=== PATIENT | female | born 1950 | race Caucasian/White ===

== ENCOUNTER 2022-08-13 18:11 | Observation (INO) | payer OTHER, SELFPAY ==
--- NOTE | 2022-08-13 18:12 | XRR_ITS ---
PROCEDURE INFORMATION: Exam: XR Chest Exam date and time: 08/13/2022 8:36 PM Age: 71 years old Clinical indication: Pain; Chest pressure; Additional info: Cp TECHNIQUE: Imaging protocol: Radiologic exam of the chest. Views: 1 view. COMPARISON: No relevant prior studies available. FINDINGS: Lungs: Unremarkable. No consolidation. Pleural spaces: Unremarkable. No pleural effusion. No pneumothorax. Heart/Mediastinum: Unremarkable. No cardiomegaly. Bones/joints: Unremarkable. XR/XR chest 1V portable [id number] IMPRESSION: No acute findings.
[2022-08-13 18:13] VITALS: BP 153/90; PULSE 93; RESP 16; TEMP 36.8; O2SAT 96; BMI 33.8
--- NOTE | 2022-08-13 18:29 | ECG_ITS ---
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 Measurements Intervals [place] Rate: 89 P: 54 FL: 158 QRS: -8 QRSD: 95 T: 36 QT: 344 QTc: 420 Interpretive Statements SINUS RHYTHM WITH OCCASIONAL ECTOPIC PREMATURE COMPLEXES POSSIBLE ANTERIOR MYOCARDIAL INFARCTION , PROBABLY OLD [30 ms Q WAVE IN V3/V4, OR R < 0.2 mV IN V4] No previous ECG available for comparison Electronically Signed On 08-13-2022 21:54:36 CDT by Gus Silva M.D. [id number]
[2022-08-13 19:16] LABS: Basophils % 0.4 %; Eosinophils # 0.1 10^3/uL (0.0-0.8); Eosinophils % 1.6 %; Hematocrit 38.9 % (37.0-47.0); Hemoglobin 12.4 g/dL (11.5-15.3); Lymphocytes # 1.9 10^3/uL (0.8-4.8); Lymphocytes % 23.9 %; Mean Corpuscular HGB Conc 31.9 g/dL (30.0-36.0); Mean Corpuscular Hemoglobin 29.7 pg (28.0-34.0); Mean Corpuscular Volume 93.1 fl (81-99); Mean Platelet Volume 10.5 fL (7.4-10.4); Monocytes # 0.5 10^3/uL (0.2-0.9); Monocytes % 6.7 %; Neutrophils # 5.29 10^3/uL (1.8-7.7); Neutrophils % 66.6 %; Nucleated Red Blood Cells % 0 %; Platelet Count 212 10^3/cmm (130-400); Red Blood Count 4.18 10^6/uL (4.1-5.3); Red Cell Distribution Width 12.7 % (12.1-15.1); White Blood Count 7.9 10^3/uL (4.0-10.0)
--- NOTE | 2022-08-13 19:54 | ED_ITS ---
HPI - Chest Pain General: Chief Complaint: Chest Pain Stated Complaint: back pain, cp Time Seen by Provider: 08/13/22 19:54 History of Present Illness: Ms. Davidson is a 71-year-old lady presenting to the emergency department due to generalized illness. She reports onset of symptoms this morning with dizzy and unsteady feeling with difficulty walking. She subsequently took Dramamine which improved this. She also has developed pain between her shoulder blades and midsternal chest pain that is worse with movement and palpation as well as deep inspiration. Mild associated nausea. Intensity symptoms is moderate. Course has persisted intermittently. No other specific changes in health, exacerbating, or alleviating factors identified. Onset (ago): hour(s) Timing of current episode: constant Prior episodes: No Onset: during exertion Pain location: substernal Severity: moderate Quality: aching Exacerbating factors: inspiration and palpation Associated symptoms: Reports nausea and other Review of Systems General: Reports: 10 or more systems reviewed and unremarkable except in HPI and below GI: Reports: nausea PFSH ED PFSH: Medical History Chest pain Diabetes Family history of gout GERD (gastroesophageal reflux disease) Hypertension Surgical History History of knee surgery Family History Grandmother CAD (coronary artery disease) Diabetes Hypertension Stroke Grandfather CAD (coronary artery disease) Diabetes Hypertension Stroke Father CAD (coronary artery disease) Chronic kidney disease (CKD) Diabetes Hypertension Sister Hyperlipidemia Hypertension Mother Lung disease COPD Denies family history of Clotting disorder Dementia Psychiatric illness Anesthesia complication Bleeding disorder Cancer Social History Smoking and tobacco status: never smoked Smoking risk assessment/counseling performed?: No Alcohol intake: never Desire information about alcohol rehabilitation?: No Counseling given: No Desire information about substance/drug rehabilitation?: No Counseling given: No Adopted: No Caregiver/support person: No Lives independently: Yes Household members: family Marital status: Legally Number of children: 2 service: No Current occupational status: employed 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 History of recent travel: Yes Current gender identity: Female Serenity/Pentecostalism: Faith Special serenity needs: No Agree to transfusion: Yes Physical Exam Const: COMMON NORMALS: patient oriented x3 and alert GENERAL APPEARANCE: cooperative and well developed HENMT: COMMON NORMALS: normocephalic and atraumatic HEAD & SCALP: normocephalic and atraumatic THROAT: posterior oropharynx normal Eye: COMMON NORMALS: conjunctivae normal CONJUNCTIVA: Yes conjunctivae normal SCLERA: sclerae normal Neck/C-Spine: COMMON NORMALS: supple GENERAL: Yes trachea midline Resp: COMMON NORMALS: clear to auscultation bilaterally EFFORT & INSPECTION: Yes able to speak in complete sentences AUSCULTATION: clear to auscultation bilaterally Cardio: COMMON NORMALS: regular rate and regular rhythm RATE: regular rate RHYTHM: regular rhythm GI: COMMON NORMALS: Soft to palpation PALPATION: Yes Soft to palpation and No Tenderness to palpation present (GI) PERCUSSION: normal to percussion Extremity: GENERAL: Yes normal exam except as noted and No edema Neuro: COMMON NORMALS: patient oriented x3, CN's II-XII intact bilaterally, moves all extremities, no focal motor deficits and no sensory deficits noted SENSORIUM/ORIENTATION: Yes alert and No Orientation impaired Psych: COMMON NORMALS: mental status grossly normal and Normal thought process present THOUGHT PROCESS: Normal thought process present Course Vital Signs: Vital signs: Vital Signs Temperature 97.8 F 08/14/22 16:19 Pulse Rate 99 08/14/22 16:19 Respiratory Rate 16 08/14/22 16:19 Blood Pressure 147/80 08/14/22 16:19 Pulse Oximetry 95 08/14/22 16:19 Oxygen Delivery Me thod 08/14/22 12:00 [facility] - Chest Pain Medical Decision Making 71-year-old lady presenting due to chest pain and generalized illness. EKG notable for sinus rhythm with nonspecific ST segment abnormalities, no STEMI. Laboratory studies without clear etiology of patient's symptoms. Chest x-ray with no lobar consolidation or pneumothorax. Delta troponin negative. D-dimer negative. Patient is not low risk by heart score. I discussed possible disposition options including risk stratification and estimated risk of major adverse cardiac events. Patient prefers inpatient management which is reasonable. Admitted for further management. Medical Records I reviewed the patient's medical records. Lab Data I reviewed the patient's lab results. : 08/14/22 04:32 08/14/22 04:32 Radiology Impressions Chest X-Ray 08/13/22 18:12 IMPRESSION: No acute findings. Laboratory Results WBC 7.9 10^3/uL (4.0-10.0) 08/13/22 19:07 RBC 4.18 10^6/uL (4.1-5.3) 08/13/22 19:07 Hgb 12.4 g/dL (11.5-15.3) 08/13/22 19:07 Hct 38.9 % (37.0-47.0) 08/13/22 19:07 MCV 93.1 fl (81-99) 08/13/22 19:07 MCH 29.7 pg (28.0-34.0) 08/13/22 19:07 MCHC 31.9 g/dL (30.0-36.0) 08/13/22 19:07 RDW 12.7 % (12.1-15.1) 08/13/22 19:07 Plt Count 212 10^3/cmm (130-400) 08/13/22 19:07 MPV 10.5 fL (7.4-10.4) H 08/13/22 19:07 Neut % (Auto) 66.6 % 08/13/22 19:07 Lymph % (Auto) 23.9 % 08/13/22 19:07 [place] % (Auto) 6.7 % 08/13/22 19:07 Eos % (Auto) 1.6 % 08/13/22 19:07 Baso % (Auto) 0.4 % 08/13/22 19:07 Neut # (Auto) 5.29 10^3/uL (1.8-7.7) 08/13/22 19:07 Lymph # (Auto) 1.9 10^3/uL (0.8-4.8) 08/13/22 19:07 [place] # (Auto) 0.5 10^3/uL (0.2-0.9) 08/13/22 19:07 Eos # (Auto) 0.1 10^3/uL (0.0-0.8) 08/13/22 19:07 Baso # (Auto) 0.0 10^3/uL (0.0-0.1) 08/13/22 19:07 Nucleated RBC % (auto) 0 % 08/13/22 19:07 Nucleated RBCs # 0.0 /100WBC 08/13/22 19:07 D-Dimer 0.54 ug/mIFEU (0-0.59) 08/13/22 19:40 Sodium 137 mmol/L (136-145) 08/13/22 19:07 Potassium 4.3 mmol/L (3.5-5.1) 08/13/22 19:07 Chloride 100 mmol/L (98-107) 08/13/22 19:07 Carbon Dioxide 27 mmol/L (22-29) 08/13/22 19:07 Anion Gap 14.3 (5-19) 08/13/22 19:07 BUN 23 mg/dL (8-23) 08/13/22 19:07 Creatinine 1.0 mg/dL (0.5-0.9) H 08/13/22 19:07 GFR Calculation Not Reportable 08/13/22 19:07 Glucose 111 mg/dL (65-115) 08/13/22 19:07 Calculated Osmolality 288 mOsm/kg (285-295) 08/13/22 19:07 Calcium 9.5 mg/dL (8.5-10.5) 08/13/22 19:07 Total Bilirubin 0.3 mg/dL (0.15-1.2) 08/13/22 19:07 AST 31 U/L (0-32) 08/13/22 19:07 ALT 39 U/L (0-33) H 08/13/22 19:07 Alkaline Phosphatase 121 U/L (35-105) H 08/13/22 19:07 Troponin T Baseline 11 ng/L (0-10) H 08/13/22 19:07 Troponin T 120 Minute 11.27 ng/L (0-10) H 08/13/22 19:46 Delta Troponin T 0.27 ABS# (0-10) 08/13/22 19:46 Total Protein 7.5 g/dL (6.6-8.7) 08/13/22 19:07 Albumin 4.3 g/dL (3.5-5.2) 08/13/22 19:07 Globulin 3.2 g/dL (1.3-4.6) 08/13/22 19:07 Urine Color Yellow (Yellow) 08/13/22 15:05 Urine Appearance Sl hazy (CLEAR) A 08/13/22 15:05 Urine pH 6 (5-7) 08/13/22 15:05 Ur Specific [place] 1.015 (1.005-1.030) 08/13/22 15:05 Urine Protein Neg (Negative) 08/13/22 15:05 Urine Glucose (UA) Norm (Normal) 08/13/22 15:05 Urine Ketones Negative (Negative) 08/13/22 15:05 Urine Blood Neg (Negative) 08/13/22 15:05 Urine Nitrate Positive (Negative) H 08/13/22 15:05 Urine Bilirubin Neg (Negative) 08/13/22 15:05 Urine Urobilinogen Norm mg/dL (Negative) 08/13/22 15:05 Ur Leukocyte Esterase Trace (Negative) H 08/13/22 15:05 Urine RBC None /hpf (0-2) 08/13/22 15:05 Urine WBC 10-15 /hpf (0-5) H 08/13/22 15:05 Ur Squamous Epith Cells 0-4 /hpf (0-5) H 08/13/22 15:05 Amorphous Sediment Not Reportable 08/13/22 15:05 Urine Bacteria 3+ /hpf (NONE) H 08/13/22 15:05 SARS-CoV-2 Ag (Rapid) negative (Negative) 08/13/22 21:50 Discharge Plan Discharge Patient Disposition: Admitted As Inpatient Admit Provider: Marlon Rodgers Clinical Impression: Chest pain Condition: Stable Discharge Diet: Cardiac Discharge Activity: Increase activity as tolerated Coding Level of Care Code ED Annual Giving Director for Joaquin Gallardo
[2022-08-13 19:56] LABS: Alanine Aminotransferase 39 U/L (0-33); Albumin Level 4.3 g/dL (3.5-5.2); Alkaline Phosphatase 121 U/L (35-105); Anion Gap 14.3 (5-19); Aspartate Amino Transferase 31 U/L (0-32); Blood Urea Nitrogen 23 mg/dL (8-23); Calcium 9.5 mg/dL (8.5-10.5); Carbon Dioxide 27 mmol/L (22-29); Chloride 100 mmol/L (98-107); Globulin 3.2 g/dL (1.3-4.6); Glucose 111 mg/dL (65-115); Osmolality Calculated 288 mOsm/kg (285-295); Potassium 4.3 mmol/L (3.5-5.1); Sodium 137 mmol/L (136-145); Total Bilirubin 0.3 mg/dL (0.15-1.2); Total Protein 7.5 g/dL (6.6-8.7); Troponin(5th) Baseline 11 ng/L (0-10)
--- NOTE | 2022-08-13 20:13 | ECG_ITS ---
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 Measurements Intervals [place] Rate: 81 P: 58 [place]: 161 QRS: -6 QRSD: 94 T: 35 QT: 355 QTc: 414 Interpretive Statements SINUS RHYTHM POSSIBLE ANTERIOR MYOCARDIAL INFARCTION , PROBABLY OLD [30 ms Q WAVE IN V3/V4, OR R < 0.2 mV IN V4] Compared to ECG 08/13/2022 18:29:58 No significant changes Electronically Signed On 08-13-2022 22:03:58 CDT by Gus Silva M.D. [id number]
[2022-08-13 20:25] LABS: D Dimer 0.54 ug/mIFEU (0-0.59)
[2022-08-13 21:00] VITALS: BP 161/92; PULSE 84; RESP 16; O2SAT 96
[2022-08-13] MEDS: aspirin 81 mg Chew Tablet 324 MG PO (21:07)
[2022-08-13 21:29] LABS: Troponin 5 2HR 11.27 ng/L (0-10)
[2022-08-13 21:39] LABS: Troponin 5 2HR Delta 0.27 ABS# (0-10)
[2022-08-13 22:00] VITALS: BP 187/102; PULSE 86; RESP 16; O2SAT 95
[2022-08-13 22:21] LABS: SARS Covid-2 Antigen negative (Negative)
--- NOTE | 2022-08-13 22:41 | ECG_ITS ---
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 Interpretive Statements NAME OF STUDY: LEXISCAN SESTAMIBI STRESS TEST INDICATION: Chest Pain PROCEDURE: At the baseline, the blood pressure was 142/71 mmHg, oxygen saturation 94% with a heart rate of 96 bpm. The electrocardiogram showed normal sinus rhythm, normal axis with normal ST and T's. The Lexiscan was infused over a period of 20 seconds. A total of 0.4 milligrams of Lexiscan was infused. The stress phase was continued for a total of 5 minutes. Heart rate at the end of the stress phase was 112 bpm, oxygen saturation 97% with a blood pressure of 138/83 mmHg. The EKG at the peak infusion revealed sinus tachycardia with no significant ST-T wave changes. The study was terminated due to protocol completion. Sestamibi was injected 20 seconds after the Lexiscan infusion. Blood pressure at the end of the recovery phase was 140/84 mmHg, oxygen saturation 96% with a heart rate of 101 beats per minute. CONCLUSION: 1. Normal EKG response to LexiScan infusion. 2. No LexiScan induced chest pain or cardiac arrhythmia. 3. Normal blood pressure and heart rate response. 4. Sestamibi/sestamibi perfusion scan pending; see separate report. Electronically Signed On 08-14-2022 10:00:01 CDT by Michell Bolton M.D. [id number]
--- NOTE | 2022-08-13 23:45 | P.HP_ITS ---
Providers/Chief Complaint Admitting Physician: Marlon Rodgers MD Chief Complaint: back pain, cp History of Present Illness Anuradha Davidson is a 71 year old female with past medical history of hypertension diabetes , gout, came in with chief complaint of, anterior substernal chest pain, pressure-like, which has been accompanied with upper back pain, which according to the patient is in between her shoulder blades. She is also complaining of dizziness, as well as gait instability likely due to dizziness.All of the symptoms have started today in the morning.She currently denies any headache , fever, chills ,cough, shortness of breath ,runny nose ,ear pain , ear discharge,Headache. According to the patient she has a strong family history of cardiac disease. Pertinent imaging studies done in the ER includes: X-ray chest: No acute findings. EKG: Sinus rhythm, no acute ST-T wave changes Pertinent labs: WBC 7.9, H&H 12/38 PLT : 212 , sodium 137 , potassium 4.3, BUN serum creatinine 23/ 1 , AST 31, ALT 39, ALP 121 Troponin trend: 11-11 . D-dimer 0.54 Rapid COVID antigen negative Review of Systems Const: Denies: fever(s), chills, body aches, change in appetite or diaphoresis Card: Reports: swelling of feet/ankles; Denies: palpitations, edema, dyspnea on exertion, orthopnea or leg pain with exertion Resp: Denies: dyspnea, productive cough, wheezing or pain on inspiration GI: Denies: abdominal pain, nausea, vomiting, diarrhea or constipation : Denies: flank pain Musc: Reports: back pain; Denies: extremity pain or extremity swelling Neuro: Denies: headache(s), difficulty walking or confusion Medications/Allergies Home Medications Medication Instructions Recorded Confirmed Last Taken Type allopurinol 100 mg tablet 100 mg PO DAILY 08/13/22 08/13/22 08/13/22 History aspirin 81 mg tablet 81 mg PO DAILY 08/13/22 08/13/22 08/13/22 History lisinopril 20 mg tablet 20 mg PO DAILY 08/13/22 08/13/22 08/13/22 History metformin 1,000 mg tablet 1,000 mg PO BID 08/13/22 08/13/22 08/13/22 History omeprazole 20 mg capsule,delayed 20 mg PO DAILY 1008/13/22 08/13/22 History release Allergies Allergy/AdvReac Type Severity Reaction Status Date / Time No Known Allergies Allergy Verified 08/13/22 23:03 Vitals/I&O/Wt Last Vital Signs Temp 98.2 F 08/13/22 18:13 Pulse 86 08/13/22 22:00 Resp 16 08/13/22 22:00 BP 187/102 08/13/22 22:00 Pulse Ox 95 08/13/22 22:00 O2 Del Method 08/13/22 21:00 Weight last 48 hrs Weight 86.636 kg Physical Exam Const: COMMON NORMALS: patient oriented x3 Resp: COMMON NORMALS: clear to auscultation bilaterally EFFORT & INSPECTION: Yes symmetric chest movement AUSCULTATION: clear to auscultation bilaterally Cardio: COMMON NORMALS: regular rate, regular rhythm, S1 normal heart sound present, S2 normal heart sound present, No gallops present (Cardio), No murmurs present (Cardio), No rub (Cardio) and Peripheral pulses 2+ throughout RATE: regular rate RHYTHM: regular rhythm HEART SOUNDS: S1 normal heart sound present and S2 normal heart sound present PERIPHERAL PULSES: Peripheral pulses 2+ throughout GI: COMMON NORMALS: Normal to inspection, nondistended, normoactive bowel sounds present, Soft to palpation, non-tender, No hepatosplenomegaly present and no masses AUSCULTATION: Yes normoactive bowel sounds PALPATION: Yes Soft to palpation and Yes No hepatosplenomegaly present RECTAL EXAM: deferred Extremity: COMMON NORMALS: no clubbing, cyanosis or edema and no pedal edema Neuro: COMMON NORMALS: patient oriented x3 Data : 08/14/22 04:32 08/14/22 04:32 A&P Assessment and plan (1) Chest pain: (2) Hypertension: (3) Diabetes: Plan 71 year old female with past medical history of hypertension diabetes , gout, came in with chief complaint of, anterior substernal chest pain, pressure-like, which has been accompanied with upper back pain, which according to the patient is in between her shoulder blades. She is also complaining of dizziness, as well as gait instability likely due to dizziness. Assessment: Chest pain Hypertension Diabetes Gout Plan: Follow lipid panel, HbA1c, TSH Patient has currently presented with chest pain, she has significant cardiac risk factors which includes hypertension longstanding diabetes, strong family history of cardiac disease, obesity. It will be prudent to do 2D echo as well as nuclear stress test, to further evaluate for possible Cardiac etiology of chest pain. Continue aspirin, as needed sublingual nitro. Continue lisinopril, for hypertension, monitor blood pressure closely, Blood pressure goal < 130/90 LDSSI,FSG, diabetic diet. Continue allopurinol for gout CODE STATUS: Full code DVT prophylaxis: On Lovenox Attestations Medical Necessity Statement*: Patient is to be in hospital for management of chest pain. Time Spent in Patient Care: Greater than 35 minutes (>than 50% of time spent in counselling and/or direct pt care on unit) . Coding Level of Care Code Acute Communications Superintendent for Chg Fwd Exam Detailed Diagnoses Chest pain R07.9 Hypertension I10 Diabetes E11.9
[2022-08-13] MEDS: amlodipine 5 mg Tablet PO (23:58)
[2022-08-13] MEDS: hyDRALAzine 25 mg Tablet PO (23:58)
[2022-08-14] VITALS: BP 173/107; PULSE 87; RESP 17; TEMP 36.4; O2SAT 97
[2022-08-14] MEDS: perflutren protein-a microsphr 0.22 mg/mL SDV 3 mL IV (01:52)
[2022-08-14 04:00] VITALS: BP 132/79; PULSE 80; RESP 17; TEMP 36.4; O2SAT 97
[2022-08-14 05:05] LABS: Basophils % 0.4 %; Eosinophils # 0.1 10^3/uL (0.0-0.8); Eosinophils % 1.5 %; Hematocrit 38.3 % (37.0-47.0); Hemoglobin 12.2 g/dL (11.5-15.3); Lymphocytes # 1.4 10^3/uL (0.8-4.8); Lymphocytes % 18.9 %; Mean Corpuscular HGB Conc 31.9 g/dL (30.0-36.0); Mean Corpuscular Hemoglobin 29.2 pg (28.0-34.0); Mean Corpuscular Volume 91.6 fl (81-99); Mean Platelet Volume 10.6 fL (7.4-10.4); Monocytes # 0.5 10^3/uL (0.2-0.9); Monocytes % 5.9 %; Neutrophils # 5.51 10^3/uL (1.8-7.7); Neutrophils % 72.6 %; Nucleated Red Blood Cells % 0 %; Platelet Count 182 10^3/cmm (130-400); Red Blood Count 4.18 10^6/uL (4.1-5.3); Red Cell Distribution Width 12.7 % (12.1-15.1); White Blood Count 7.6 10^3/uL (4.0-10.0)
[2022-08-14 05:16] LABS: Estmated Average Glucose 146; Hemoglobin A1C 6.7 % (4.0-6.0)
[2022-08-14 05:35] LABS: Alanine Aminotransferase 37 U/L (0-33); Albumin Level 3.8 g/dL (3.5-5.2); Alkaline Phosphatase 105 U/L (35-105); Blood Urea Nitrogen 23 mg/dL (8-23); Calcium 9.1 mg/dL (8.5-10.5); Carbon Dioxide 28 mmol/L (22-29); Chloride 100 mmol/L (98-107); Cholesterol 170 mg/dL (0-200); Globulin 2.9 g/dL (1.3-4.6); Glucose 120 mg/dL (65-115); HDL Cholesterol 34 mg/dL (60-100); LDL Cholesterol Calculated 108 mg/dL (50-129); LDL HDL Ratio 3.18 RATIO (0.00-3.22); Osmolality Calculated 293 mOsm/kg (285-295); Sodium 139 mmol/L (136-145); Thyroid Stimulating Hormone 0.82 uIU/mL (0.27-4.20); Total Bilirubin 0.4 mg/dL (0.15-1.2); Total Protein 6.7 g/dL (6.6-8.7); Triglycerides 140 mg/dL (0-150)
[2022-08-14 05:46] LABS: Anion Gap 15.9 (5-19); Aspartate Amino Transferase 31 U/L (0-32); Potassium 4.9 mmol/L (3.5-5.1)
[2022-08-14 06:37] LABS: Glucose Point of Care 128 mg/dL (70-110)
[2022-08-14] MEDS: regadenoson 0.4 Mg/5 ml Syringe IVP (07:29)
[2022-08-14 07:40] VITALS: BP 140/84; PULSE 101
[2022-08-14] MEDS: aspirin 81 mg EC Tablet PO (09:02)
[2022-08-14] MEDS: lisinopril 20 mg Tablet PO (09:02)
[2022-08-14] MEDS: allopurinol 100 mg Tablet PO (09:02)
--- NOTE | 2022-08-14 10:32 | P.DS_ITS ---
Discharge Providers Date of Admission: 08/13/22 23:03 Date of Discharge: August 14, 2022 Attending Provider at Admission: Marlon Rodgers MD Attending Provider at Discharge: Marlon Rodgers MD Diagnoses at Discharge Discharge Diagnosis (1) Chest pain: Status: Acute (2) Hypertension: Status: Acute (3) Diabetes: Status: Acute Reason for Visit Reason for Visit: back pain, cp Hospital Course Hospital Course 71-year-old female who presented to hospital with chief complaint of pain in between her shoulder blades and in her shoulders Her chest pain is reproducible Stress test was recommended EKG without any ischemic or acute infarctive changes Troponin unremarkable No signs of aortic dissection, D-dimer unremarkable PE ruled out EKG showing ectopic beats patient remained hemodynamically stable Stress test did not show coronary ischemia, for her hypertensive urgency I have added lisinopril 40 mg daily along amlodipine. I have asked her to maintain a blood pressure log as well Physical Exam Narrative: Awake and alert S1, S2 Abdomen soft, reproducible left-sided chest pain Pleasant and cooperative Currently on room air No active distress No active chest pain Discharge Data Studies Completed and Pending Completed Studies During Hospitalization Category Date Time Status Cardiac Stress Test MIBI [Sestamibi Stress Test Request Exams 08/13/22 22:41 Completed ] Stat XR chest 1V portable [id number] Stat Exams 08/13/22 18:12 Completed Pending at discharge Category Date Time Status CBC Auto Diff [Complete Blood Count w/Auto] AM LABS Lab 08/15/22 04:00 Ordered CBC Auto Diff [Complete Blood Count w/Auto] AM LABS Lab 08/16/22 04:00 Ordered CMP [Comprehensive Metabolic Panel] AM LABS Lab 08/15/22 04:00 Ordered CMP [Comprehensive Metabolic Panel] AM LABS Lab 08/16/22 04:00 Ordered Urinalysis Routine Lab 08/13/22 23:48 Uncollected NM lizbeth perf SPECT r/s* [id number] Routine Nuc Med 08/14/22 22:41 Taken CV. echo wo/w contrast [id number] Stat Ultrasound 08/14/22 22:41 Taken Radiology Impressions Chest X-Ray 08/13/22 18:12 IMPRESSION: No acute findings. Laboratory Results WBC 7.6 10^3/uL (4.0-10.0) 08/14/22 04:32 RBC 4.18 10^6/uL (4.1-5.3) 08/14/22 04:32 Hgb 12.2 g/dL (11.5-15.3) 08/14/22 04:32 Hct 38.3 % (37.0-47.0) 08/14/22 04:32 MCV 91.6 fl (81-99) 08/14/22 04:32 MCH 29.2 pg (28.0-34.0) 08/14/22 04:32 MCHC 31.9 g/dL (30.0-36.0) 08/14/22 04:32 RDW 12.7 % (12.1-15.1) 08/14/22 04:32 Plt Count 182 10^3/cmm (130-400) 08/14/22 04:32 MPV 10.6 fL (7.4-10.4) H 08/14/22 04:32 Neut % (Auto) 72.6 % 08/14/22 04:32 Lymph % (Auto) 18.9 % 08/14/22 04:32 [place] % (Auto) 5.9 % 08/14/22 04:32 Eos % (Auto) 1.5 % 08/14/22 04:32 Baso % (Auto) 0.4 % 08/14/22 04:32 Neut # (Auto) 5.51 10^3/uL (1.8-7.7) 08/14/22 04:32 Lymph # (Auto) 1.4 10^3/uL (0.8-4.8) 08/14/22 04:32 [place] # (Auto) 0.5 10^3/uL (0.2-0.9) 08/14/22 04:32 Eos # (Auto) 0.1 10^3/uL (0.0-0.8) 08/14/22 04:32 Baso # (Auto) 0.0 10^3/uL (0.0-0.1) 08/14/22 04:32 Nucleated RBC % (auto) 0 % 08/14/22 04:32 Nucleated RBCs # 0.0 /100WBC 08/14/22 04:32 D-Dimer 0.54 ug/mIFEU (0-0.59) 08/13/22 19:40 Sodium 139 mmol/L (136-145) 08/14/22 04:32 Potassium 4.9 mmol/L (3.5-5.1) 08/14/22 04:32 Chloride 100 mmol/L (98-107) 08/14/22 04:32 Carbon Dioxide 28 mmol/L (22-29) 08/14/22 04:32 Anion Gap 15.9 (5-19) 08/14/22 04:32 BUN 23 mg/dL (8-23) 08/14/22 04:32 Creatinine 0.9 mg/dL (0.5-0.9) 08/14/22 04:32 GFR Calculation Not Reportable 08/14/22 04:32 Glucose 120 mg/dL (65-115) H 08/14/22 04:32 POC Glucose 128 mg/dL (70-110) H 08/14/22 06:24 Estimat Average Glucose 146 08/14/22 04:32 Hemoglobin A1c 6.7 % (4.0-6.0) H 08/14/22 04:32 Calculated Osmolality 293 mOsm/kg (285-295) 08/14/22 04:32 Calcium 9.1 mg/dL (8.5-10.5) 08/14/22 04:32 Total Bilirubin 0.4 mg/dL (0.15-1.2) 08/14/22 04:32 AST 31 U/L (0-32) 08/14/22 04:32 ALT 37 U/L (0-33) H 08/14/22 04:32 Alkaline Phosphatase 105 U/L (35-105) 08/14/22 04:32 Troponin T Baseline 11 ng/L (0-10) H 08/13/22 19:07 Troponin T 120 Minute 11.27 ng/L (0-10) H 08/13/22 19:46 Delta Troponin T 0.27 ABS# (0-10) 08/13/22 19:46 Total Protein 6.7 g/dL (6.6-8.7) 08/14/22 04:32 Albumin 3.8 g/dL (3.5-5.2) 08/14/22 04:32 Globulin 2.9 g/dL (1.3-4.6) 08/14/22 04:32 Triglycerides 140 mg/dL (0-150) 08/14/22 04:32 Cholesterol 170 mg/dL (0-200) 08/14/22 04:32 LDL Cholesterol, Calc 108 mg/dL (50-129) 08/14/22 04:32 HDL Cholesterol 34 mg/dL (60-100) L 08/14/22 04:32 LDL/HDL Ratio 3.18 RATIO (0.00-3.22) 08/14/22 04:32 Cholesterol/HDL Ratio 5.00 mg/dL (0.0-4.40) H 08/14/22 04:32 TSH 0.82 uIU/mL (0.27-4.20) 08/14/22 04:32 SARS-CoV-2 Ag (Rapid) negative (Negative) 08/13/22 21:50 Vitals Last Vital Signs Temp 97.5 F L 08/14/22 04:00 Pulse 101 H 08/14/22 07:40 Resp 17 08/14/22 04:00 BP 140/84 08/14/22 07:40 Pulse Ox 97 08/14/22 04:00 O2 Del Method 08/13/22 23:11 Discharge Plan Discharge Patient Disposition: Home Condition: Stable Prescriptions: New oxycodone-acetaminophen 5-325 mg tablet 1 tab PO Q8H Qty: 5 0RF meclizine 25 mg Tablet 25 mg PO TID PRN (Reason: Dizziness) Qty: 10 0RF amlodipine 5 mg tablet 5 mg PO DAILY Qty: 60 0RF Continued allopurinol 100 mg Tablet 100 mg PO DAILY omeprazole 20 mg Capsule,Delayed Release(Dr/Ec) 20 mg PO DAILY metformin 1,000 mg Tablet 1,000 mg PO BID aspirin 81 mg Tablet 81 mg PO DAILY Changed lisinopril 20 mg Tablet 40 mg PO DAILY Qty: 60 0RF Discharge Orders: Discharge Order (Routine); Ordered 08/14/22 Ordered By: Clif Haines Discharge Diet: Cardiac Discharge Activity: Increase activity as tolerated Patient Instructions: Opioid Safety Patient's Health Concerns: She has still on higher side I have increased the dose of lisinopril to 40 mg daily and added amlodipine 5 mg daily please maintain a blood pressure log and show it to PCP for further optimization of her medications Discharge Attestations Time Spent in Discharge Care*: less than 30 min Quality Metrics Clinical Quality Measures [ No reported AMI, CVA or VTE this stay] Coding Level of Care Code Acute Chg FW DC note Diagnoses Chest pain R07.9 Hypertension I10 Diabetes E11.9
[2022-08-14 11:07] LABS: Glucose Point of Care 190 mg/dL (70-110)
[2022-08-14 12:00] VITALS: BP 147/80; PULSE 99; RESP 16; TEMP 36.6; O2SAT 95
--- NOTE | 2022-08-14 13:56 | PC.CHAP ---
Pastoral Care Encounter/Spiritual Assessment Type of Contact [] Declined barrel centerer visit [] Patient/Family/Request visit [] Outpatient visit [] Follow-up visit [] Physician referral [] Code/Alert [x] Routine visit [] Staff referral [] Actively dying [] Patient sleeping [] Family support [] [] Out of room [] Palliative care [] [] Receiving care in room [] Pre-surgical visit [] Trauma [] Long length of stay [] ICU visit [] Other: Relational/Emotional Strength [x] Patient feels connected with others/family/visitors/staff [] Distress [] Loneliness/isolation [] Abandonment Spirituality of Patient [x] Person of Serenity [] Attends [employer] of their Serenity [] Believes in Prayer [] Reads Bible or Buddhism materials [] There are 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 Interventions [x] Prayer [] Active listening [] Non-anxious presence [] Spiritual/emotional support [] Crisis/trauma care [] Spiritual counseling [] Bereavement support [] Provided bereavement packet [] Provided Bible/devotional materials [] Provided toy/stuffed animal, coloring book to patient or family member [] Provided Communion [] Anointing/[place] [] Salvation [x] Completed spiritual assessment [] Other: Impact on Illness or Injury [] Angry [] Fearful [] Anxious [] Often cries [] Exhaustion [] Unable to work [] Unable to attend yazdanism [] Unable to walk/stand [] Unable to read [] Unable to drive [] Unable to eat/drink [x] Unable to sleep [] Unable to be with family [] Patient intubated [] Other: Summary Time spent with patient
--- NOTE | 2022-08-14 16:18 | PC.NURSE ---
Discharge Note Patient discharged to home via private vehicle accompanied by family member. Discharge instructions reviewed with patient and/or payable representative. Mobile pharmacy medications and/or prescriptions provided. Belongings/home medications returned.
[2022-08-14 16:19] VITALS: BP 147/80; PULSE 99; RESP 16; TEMP 36.6; O2SAT 95
[2022-08-14 16:45] LABS: Specific Gravity, Urine 1.015 (1.005-1.030); Urine Appearance SL Hazy (CLEAR); Urine Color Yellow (Yellow); pH Urine 6 (5-7)
[2022-08-14 16:46] LABS: Add Urine Microscopic? YES; Bilirubin Urine Neg (Negative); Blood Urine Neg (Negative); Glucose Urine UA Norm (Normal); Ketones Urine Negative (Negative); Leukocyte Esterase Urine Trace (Negative); Nitrate Urine Positive (Negative); Protein Urine Neg (Negative); Squamous Epithelial Cell Urine 0-4 /hpf (0-5); Urobilinogen Urine Norm (Negative)
[2022-08-14 16:47] LABS: Add Urine Culture? Yes; Bacteria Urine 3+ /hpf
--- NOTE | 2022-08-14 22:41 | NMCV_ITS ---
NM lizbeth perf SPECT r/s* [id number] Anuradha Davidson Age: 71 Gender: F : 1950 Exam Date: 08/14/2022 06:58 Ordering Phys: Marlon Rodgers MD Technologist: VEL Mckeon Exam Location: [facility] [place] Indications: CHEST PAIN STRESS TEST Please see separate [facility] for full findings IMAGE PROTOCOL Rest/Stress 1 Lexiscan Day Radiopharmaceutical Dose (mCi) Administration Site Administered by Rest: Tc-99m 10.8 IV VEL Robins Sestamibi Stress:Tc-99m 32.6 IV VEL Robins Sestamibi Rest: 14-Aug-2022 60 Discovery 630 Stress: 14-Aug-2022 30 Discovery 630 0.4mg Lexiscan. Images obtained in supine and prone position. SPECT RESULTS Technical Quality: Excellent Raw Data Analysis: Subdiaphragmatic attenuation artifact Image Corrections: No attenuation or motion correction applied Summed Stress Score: 8 Summed Rest Score: 6 Summed Difference Score: 2 PERFUSION FINDINGS Small sized perfusion abnormality of mild severity of mid inferolateral and apical lateral, apical inferior and apical wall on rest images with reversibility in basal to mid inferolateral wall on supine stress images. There is improved tracer uptake in inferolateral wall on prone stress images. FUNCTIONAL RESULTS (calculated via Gated SPECT) Stress Image LV EF (%): 72 Stress EDV (mL):75 TID: 0.79 Stress ESV (mL):21 FUNCTIONAL FINDINGS: The left ventricle is normal in size. Transient Ischemia Dilatation of 0.79. There is normal left ventricular systolic function. The left ventricular ejection fraction is normal with a value of 72%. There is normal end-diastolic and end-systolic volumes. IMPRESSIONS 1. Small sized perfusion abnormality of basal to mid mid inferolateral jarrett with improved tracer uptake in prone stress images. This is likely suggestive of attenuation artifact. 2. Small sized fixed perfusion abnormality of apical inferior, apical lateral and apical jarrett. This may represent attenuation artifact or small area of old myocardial infarction. 3. Overall left ventricular systolic function is normal without regional wall motion abnormalities,LVEF=72%. 4. No EKG changes with Lexiscan infusion. Refer to separate report for details. 5. No coronary ischemia based on the study. Michell Bolton MD (Electronically Signed) Final Date: 14 August 2022 10:45 S
--- NOTE | 2022-08-14 22:41 | USCV_ITS ---
Transthoracic Echo w Contrast Anuradha Davidson Age: 71 Gender: F : 1950 Exam Date: 08/14/2022 01:02 Ordering Phys: Marlon Rodgers MD Technologist: Rivka Guthrie Exam Location: [facility] – [place] Indication: Chest Pain BP: 187 / 102 HR: 88 Rhythm: Sinus Technical Quality: Adequate MEASUREMENTS (Male / Female) Normal Values 2D ECHO LV Diastolic Diameter PLAX 4.2 cm 4.2 - 5.9 / 3.9 - 5.3 cm LV Systolic Diameter PLAX 3.5 cm LV Chamber Size 3.7 cm IVS Diastolic Thickness 1.0 cm 0.6 - 1.0 / 0.6 - 0.9 cm IVS Systolic Thickness 1.3 cm LVPW Diastolic Thickness 1.4 cm 0.6 - 1.0 / 0.6 - 0.9 cm LVPW Systolic Thickness 1.3 cm RV Chamber Size 3.6 cm LVOT Diameter 2.0 cm LV Ejection Fraction 2D Teich 38.0 % LV Ejection Fraction MOD 2C 75.4 % LV Ejection Fraction 2C AL 76.7 % LA Diameter 2.7 cm LA Width 2.4 cm LA Height 4.0 cm RA Width 3.2 cm RA Height 3.3 cm Aorta at Sinotubular Diameter 2.6 cm IVC Diameter 2.0 cm M-MODE Aortic Annulus Diameter 2.6 cm LA Ao Ratio MM 1.3 MV E Point Septal Separation 0.8 cm DOPPLER AV Peak Velocity 129.0 cm/s LVOT Peak Velocity 76.0 cm/s AV Area Cont Eq vti 2.1 cm squared AV Area Cont Eq pk 1.9 cm squared MV Area PHT 6.9 cm squared Mitral E to A Ratio 0.9 MV E' Velocity 51.5 cm/s Mitral E to MV E' Ratio 15.8 Mitral E to LV E' Lateral Ratio 14.0 Mitral E to LV E' Septal Ratio 18.5 TR Peak Velocity 149.7 cm/s TR Peak Gradient 9.0 mmHg TR Mean Velocity 108.9 cm/s TR Mean Gradient 5.2 mmHg TR Velocity Time Integral 39.4 cm TV Peak E Velocity 63.0 cm/s Right Atrial Pressure 3.0 mmHg Pulmonary Artery Systolic Pressu 12.0 mmHg RV Acceleration Time 0.1 s RV Ejection Time 0.4 s RV AcT/ET 0.4 FINDINGS Left Ventricle Left ventricle is normal size. LV systolic function is normal with EF of 60 to 65%. No regional wall motion abnormalities are seen. Right Ventricle RV is normal in size and function Right Atrium Normal in size Left Atrium Normal in size Mitral Valve Mild mitral annular calcification. Mild mitral regurgitation. Aortic Valve Grossly normal. No significant stenosis or regurgitation. Tricuspid Valve Trace tricuspid regurgitation. Insufficient TR jet to calculate RVSP Pulmonic Valve Not well visualized Pericardium Normal Aorta Normal in size IVC CONCLUSIONS Technically limited quality echocardiogram because of poor ultrasonic windows. LV systolic function is normal with LVEF of 60 to 65%. Mild mitral regurgitation. Mild mitral annular calcification Trace tricuspid regurgitation No comparison studies are available Gus Silva MD (Electronically Signed) Final Date: 14 August 2022 17:35 S
== END 2022-08-14 16:19 | disposition home or self-care (01) ==
LOC: ER 21:55 → MEDSURG 08-14 06:15
PROVIDERS: Emergency Medicine; Admitting Provider Internal Medicine; Emergency Provider Emergency Medicine; Visit Provider Internal Medicine
DX: R07.9 Chest pain, unspecified (principal); I10 Essential (primary) hypertension; E11.9 Type 2 diabetes mellitus without complications; K21.9 Gastro-esophageal reflux disease without esophagitis
CPT/HCPCS: 36415; 36416; 71045; 78452; 80053; 80061; 81001; 82962; 83036; 84443; 84484; 85025; 85378; 87077; 87086; 87186; 87426; 93005; 99285; A9500; C8929; G0378; J2785; Q9956

== ENCOUNTER → 2022-09-11 16:06 | Outpatient (BNVA) | payer SELFPAY | PROVIDERS: PCP Family Medicine; Visit Provider Family Medicine | DX: I10 Essential (primary) hypertension (principal) | CPT/HCPCS: 80048 ==

== ENCOUNTER → 2022-10-16 11:37 | Outpatient (BNVA) | payer OTHER, SELFPAY | PROVIDERS: PCP Family Medicine; Visit Provider Family Medicine | DX: Z00.00 Encounter for general adult medical examination without abnormal findings (principal) | CPT/HCPCS: 80053; 80061; 83036; 84443; 85025 ==

== ENCOUNTER → 2023-09-05 14:30 | Outpatient (BNVA) | payer OTHER, SELFPAY | PROVIDERS: PCP Family Medicine; Visit Provider Family Medicine | DX: E11.9 Type 2 diabetes mellitus without complications (principal); Z23 Encounter for immunization | CPT/HCPCS: 80053; 83036 ==

== ENCOUNTER → 2024-08-22 14:46 | Outpatient (BNVA) | payer OTHER, SELFPAY | PROVIDERS: PCP Family Medicine; Visit Provider Family Medicine | DX: E11.9 Type 2 diabetes mellitus without complications (principal) | CPT/HCPCS: 80053; 80061; 83036; 85025 ==

== ENCOUNTER → 2025-01-16 16:08 | Outpatient (BNVA) | payer OTHER, SELFPAY | PROVIDERS: PCP Family Medicine; Visit Provider Family Medicine | DX: E11.9 Type 2 diabetes mellitus without complications (principal) | CPT/HCPCS: 80048; 83036 ==